=== PATIENT | male | born 1980 | race Two or more races ===

== ENCOUNTER 2020-04-22 09:18 | Emergency (ER) | payer OTHER ==
[~2020-04-22] VITALS: Ht 162.6 cm; Wt 74.8 kg
[2020-04-22 09:23] VITALS: BP 131/91
[2020-04-22] MEDS ORDERED: KETOROLAC TROMETH 60MG/2ML VIAL IM ONE (10:15)
== END 2020-04-22 10:32 | disposition home or self-care (01) ==
LOC: ER 09:18
DX: S93.402A Sprain of unspecified ligament of left ankle, initial encounter (principal); W18.30XA Fall on same level, unspecified, initial encounter; Y93.89 Activity, other specified; Y92.89 Other specified places as the place of occurrence of the external cause; Y99.8 Other external cause status
CPT/HCPCS: 73610; 96372; 99283; J1885